=== PATIENT | male | born 1995 | race Caucasian/White ===

== ENCOUNTER → 2017-01-18 | Outpatient (CLI) | payer BC ==
--- NOTE | 2017-01-18 12:28 | DIAGNOSTIC IMAGING REPORT ---
CT OF THE LEFT FOOT AND ANKLE WITHOUT CONTRAST CT DOSE: 240.81 mGy.cm CLINICAL HISTORY: Chronic left foot pain. Tarsal coalition. TECHNIQUE: Axial images of the left ankle and foot were obtained without IV contrast. Sagittal and coronal reconstructions were viewed. COMPARISON STUDY: None. 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 Fusion is near complete. No additional coalitions are identified within the left hindfoot. No fracture is identified. There is no suspicious osseous lesions. Soft tissues are suboptimally assessed by CT but no significant abnormalities are identified. There is no evidence for a stress fracture within the left foot or ankle. 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 Electronically signed by: Anshul Greenberg M.D. 01/18/2017 12:26 PM Dictated Date/Time: 01/18/2017 12:17 PM
== END | disposition home or self-care (01) ==
LOC: C.CTS 11:17
PROVIDERS: ATTEND Orthopaedic Surgery
DX: Q66.89 Other specified congenital deformities of feet (principal); M79.672 Pain in left foot; G89.29 Other chronic pain; M25.60 Stiffness of unspecified joint, not elsewhere classified; M67.02 Short Achilles tendon (acquired), left ankle